=== PATIENT | male | born 1965 | race Two or more races ===

== ENCOUNTER 2016-10-11 09:20 | Inpatient (IN) | payer OTHER ==
[2016-10-11 11:36] VITALS: BMI 31.9
--- NOTE | 2016-10-11 14:08 | HP ---
COWS - Scale Resting Pulse: 1= RI 81-100 Sweatin= Beads of Sweat on Face Restless Observation: 1= Difficult to Sit Still Pupil Size: 2= Moderately Dilated Bone or Joint Aches: 2= Severe Diffuse Aches Runny Nose/ Eye Tearin= Runny Nose/Eyes GI Upset > 30mins: 2= Nausea/Diarrhea Tremor Observation: 2= Slight Tremor Visible Yawning Observation: 1= 1-2x During Session Anxiety or Irritability: 2=Irritable/Anxious Goose Flesh Skin: 0=Smooth Skin COWS Score: 18 CIWA Score - CIWA Score Nausea/Vomitin (& diarrhea) Muscle Tremors: 4-Moderate,w/Arms Extend Anxiety: 4-Mod. Anxious/Guarded Agitation: 4-Moderately Restless Paroxysmal Sweats: 4-Forehead w/Sweat Beads Orientation: 0-Oriented Tacttile Disturbances: 0-None Auditory Disturbances: 0-None Visual Disturbances: 0-None Headache: 4-Moderately Severe CIWA-Ar Total Score: 22 Admission ROS S - HPI Chief Complaint: Withdrawal sx. Allergies/Adverse Reactions: Allergies Allergy/AdvReac Type Severity Reaction Status Date / Time No Known Allergies Allergy Verified 10/11/16 12:40 History of Present Illness: 51 y/o man with a long hx. of heroin & alcohol dependence is admitted for detox.Pt. has been in previous detox,denies significant sobriety. Exam Limitations: No Limitations - Ebola screening Have you traveled outside of the country in the last 21 days: No Have you had contact with anyone from an Ebola affected area: No Have you been sick,other than usual withdrawal symptoms: No Do you have a fever: No - Review of Systems Constitutional: Diaphoresis EENT: reports: Nose Congestion Respiratory: reports: No Symptoms reported Cardiac: reports: No Symptoms Reported GI: reports: Diarrhea, Nausea, Abdominal cramping : reports: No Symptoms Reported Musculoskeletal: reports: Back Pain, Joint Pain, Muscle Pain Integumentary: reports: Sweating Neuro: reports: Headache, Tremors Endocrine: reports: No Symptoms Reported Hematology: reports: No Symptoms Reported Psychiatric: reports: No Sypmtoms Reported Other Systems: Reviewed and Negative Patient History - Patient Medical History Hx Anemia: No Hx Asthma: Yes (as a child) Hx Chronic Obstructive Pulmonary Disease (COPD): No Hx Cancer: No Hx Cardiac Disorders: No Hx Congestive Heart Failure: No Hx Hypertension: No Hx Hypercholesterolemia: No Hx Pacemaker: No HX Cerebrovascular Accident: No Hx Seizures: No Hx Dementia: No Hx Diabetes: No Hx Gastrointestinal Disorders: No Hx Liver Disease: No Hx Genitourinary Disorders: No Hx Sexually Transmitted Disorders: No Hx Renal Disease (ESRD): No Hx Thyroid Disease: No Hx Human Immunodeficiency Virus (HIV): No Hx Hepatitis C: No Hx Depression: No Hx Suicide Attempt: No Hx Bipolar Disorder: No Hx Schizophrenia: No - Patient Surgical History Past Surgical History: Yes Hx Neurologic Surgery: No Hx Cataract Extraction: No Hx Cardiac Surgery: No Hx Lung Surgery: No Hx Breast Surgery: No Hx Breast Biopsy: No Hx Abdominal Surgery: No Hx Appendectomy: Yes (appendectomy in 2007) Hx Cholecystectomy: No Hx Genitourinary Surgery: No Hx Section: No Hx Orthopedic Surgery: Yes (fx, right ankle in 2009) Anesthesia Reaction: Yes - PPD History Previous Implant?: Yes Documented Results: Negative w/o proof Implanted On Prior [facility] Admission?: No PPD to be Administered?: Yes - Smoking Cessation Smoking history: Current some day smoker Have you smoked in the past 12 months: Yes Aproximately how many cigarettes per day: 5 Hx Chewing Tobacco Use: No Initiated information on smoking cessation: Yes 'Breaking Loose' booklet given: 10/11/16 - Substance & Tx. History Hx Alcohol Use: Yes Hx Substance Use: Yes Substance Use Type: Alcohol, Heroin, Marijuana, Tranquilizers Hx Substance Use Treatment: Yes (detox) - Substances Abused Heroin Route: Inhalation Frequency: Daily Amount used: 10-12 bags Age of first use: 23 Date of Last Use: 10/11/16 Alcohol-vodka Route: Oral Frequency: Daily Amount used: 3-4 pts. Age of first use: 9 Date of Last Use: 10/11/16 Xanax Route: Oral Frequency: 3-6 times per week Amount used: 6 mg. Age of first use: 23 Date of Last Use: 10/08/16 Family Disease History - Family Disease History Family Disease History: Heart Disease: Mother (HTN,alcohol) Admission Physical Exam BHS - Vital Signs Vital Signs: Vital Signs - 24 hr 10/11/16 11:27 Temperature 98 F Pulse Rate 92 H Respiratory 20 Rate Blood Pressure 147/90 - Physical General Appearance: Yes: Alcohol on Breath, Tremorous, Irritable, Sweating, Anxious HEENTM: Yes: Nasal Congestion, Rhinorrhea Respiratory: Yes: Chest Non-Tender, Lungs Clear, Normal Breath Sounds Neck: Yes: Supple Breast: Yes: Breast Exam Deferred Cardiology: Yes: Regular Rhythm, Regular Rate, S1, S2 Abdominal: Yes: Normal Bowel Sounds, Non Tender, Soft Genitourinary: Yes: Within Normal Limits Back: Yes: Within Normal Limits Musculoskeletal: Yes: Within Normal Limits Extremities: Yes: Tremors Neurological: Yes: Fully Oriented, Alert Integumentary: Yes: Diaphoresis Lymphatic: Yes: Within Normal Limits - Diagnostic (1) Alcohol dependence with uncomplicated withdrawal Current Visit: Yes Status: Acute (2) Opioid dependence with withdrawal Current Visit: Yes Status: Acute (3) Sedative, hypnotic or anxiolytic dependence with withdrawal, uncomplicated Current Visit: Yes Status: Acute Cleared for Admission [facility] - Detox or Rehab [facility] Level of Care: Medically Managed Detox Regimen/Protocol: Methadone/Librium [facility] Breath Alcohol Content Breath Alcohol Content: 0.167 Urine Drug Screen - Results Drug Screen Negative: No Urine Drug Screen Results: THC-Marijuana, OPI-Opiates, TCA-Tricyclic Antidepress
[2016-10-11] MEDS ORDERED: MENTHOL/PHENOL 1 EACH UD MM PRN (14:15)
[2016-10-11] MEDS ORDERED: NICOTINE POLACRILEX 2 MG GUM BUC PRN (14:15)
[2016-10-11] MEDS ORDERED: hydrOXYzine PAMOATE 50 MG CAPSULE (FP) PO PRN (14:15)
[2016-10-11] MEDS ORDERED: LOPERAMIDE HCL 2 MG CAPSULE PO PRN (14:15)
[2016-10-11] MEDS ORDERED: MAGNESIUM HYDROX 2400MG/30ML ORAL SUSPENSION 30 ML CUP PO PRN (14:15)
[2016-10-11] MEDS ORDERED: ACETAMINOPHEN 325 MG TABLET (FP) PO PRN (14:15)
[2016-10-11] MEDS ORDERED: chlordiazePOXIDE HCL 25 MG CAPSULE PO PRN (14:15)
[2016-10-11] MEDS ORDERED: P-EPHED 60MG/TRIPROLIDI 2.5MG TABLET PO PRN (14:15)
[2016-10-11] MEDS ORDERED: MAGNESIUM CITRATE 300 ML BOTTLE PO PRN (14:15)
[2016-10-11] MEDS ORDERED: guaiFENesin/D-METHORPHAN HB 10 ML UNIT-DOSE CUPS PO PRN (14:15)
[2016-10-11] MEDS ORDERED: IBUPROFEN 400 MG TABLET (FP) PO PRN (14:15)
[2016-10-11] MEDS ORDERED: ALBUTEROL SO4 6.7 GM HFA INHALER IH PRN (14:17)
[2016-10-11] MEDS ORDERED: chlordiazePOXIDE HCL 25 MG CAPSULE PO ONE (14:48)
[2016-10-11] MEDS ORDERED: METHADONE HCL 10 MG TABLET (FOR DETOX USE ONLY) PO ONE ×2 (14:48→23:00)
[2016-10-11] MEDS: NICOTINE 7 MG/24 HOURS TOPICAL PATCH TD SCH (15:22)
[2016-10-11] MEDS: chlordiazePOXIDE HCL 25 MG CAPSULE PO SCH ×2 (18:09→22:11)
[2016-10-11 20:16] LABS: URINE APPEARANCE CLOUDY; URINE BILIRUBIN NEGATIVE (NEGATIVE); URINE BLOOD NEGATIVE (NEGATIVE); URINE COLOR YELLOW; URINE GLUCOSE (UA) NEGATIVE (NEGATIVE); URINE KETONE NEGATIVE (NEGATIVE); URINE LEUK ESTERASE NEGATIVE (NEGATIVE); URINE NITRITE NEGATIVE (NEGATIVE); URINE PROTEIN NEGATIVE (NEGATIVE); URINE UROBILINOGEN NEGATIVE E.U./dl (0.2-1.0)
[2016-10-11] MEDS: THIAMINE HCL 100 MG TABLET (FP) PO SCH (22:10)
[2016-10-11] MEDS: diphenhydrAMINE HCL 50 MG CAPSULE PO PRN (22:11)
[2016-10-12] MEDS: chlordiazePOXIDE HCL 25 MG CAPSULE PO SCH ×4 (05:40→22:07)
[2016-10-12] MEDS ORDERED: METHADONE HCL 10 MG TABLET (FOR DETOX USE ONLY) PO SCH (10:00)
[2016-10-12] MEDS: PRENATAL VITAMINS W/ FOLIC ACID TABLET (FP) PO SCH (10:11)
[2016-10-12] MEDS: NICOTINE 7 MG/24 HOURS TOPICAL PATCH TD SCH (10:11)
[2016-10-12] MEDS: MAG HYDROX/AL HYDROX/SIMETH 30 ML UNIT-DOSE CUP PO PRN (10:12)
[2016-10-12 10:46] LABS: MCH 31.2 pg (25.7-33.7); MCHC 33.2 g/dl (32.0-35.9); MEAN CELL VOLUME 94.1 fl (80-96); MEAN PLT VOLUME 10.6 fl (7.5-11.1); PLATELET COUNT 143 K/MM3 (134-434); RDW 13.7 % (11.9-15.9); WHITE BLOOD COUNT 8.3 K/mm3 (4.0-10.0)
[2016-10-12 11:04] LABS: ALBUMIN 4.4 g/dl (3.4-5.0); BILIRUBIN,TOTAL 0.3 mg/dL (0.2-1.0); CALCIUM 8.8 mg/dL (8.5-10.1); COCKROFT - GAULT 91.59; CREATININE 1.3 mg/dL (0.7-1.3)
[2016-10-12 11:15] LABS: SICKLE CELL SCREEN NEGATIVE (NEGATIVE)
[2016-10-12 15:09] LABS: HIV 1 & 2 AB NEGATIVE; HIV 1 AGp24 NEGATIVE
--- NOTE | 2016-10-12 19:34 | PN ---
[facility] CIWA - CIWA Score Nausea/Vomitin Muscle Tremors: 2 Anxiety: 0-No Anxiety, at Ease Agitation: 1-Slight > Activity Paroxysmal Sweats: 3 Orientation: 0-Oriented Tacttile Disturbances: 2-Mild Itch/Numbness/Burn Auditory Disturbances: 3-Moderate Harsh/Frighten Visual Disturbances: 2-Mild Sensitivity Headache: 0-None Present CIWA-Ar Total Score: 16 BHS COWS - Scale Resting Pulse: 0= [place] 80 or Below Sweatin= Chills/Flushing Restless Observation: 1= Difficult to Sit Still Pupil Size: 0= Normal to Room Light Bone or Joint Aches: 2= Severe Diffuse Aches Runny Nose/ Eye Tearin= Runny Nose/Eyes GI Upset > 30mins: 2= Nausea/Diarrhea Tremor Observation of Outstretched Hands: 2= Slight Tremor Visible Yawning Observation: 1= 1-2x During Session Anxiety or Irritability: 2=Irritable/Anxious Goose Flesh Skin: 3=Piloerection COWS Score: 16 S Progress Note (SOAP) Subjective: Interrupted sleep, Stomach Cramping, Nausea, Diarrhea, Sweating. Objective: PT. A & O X 3, OBSERVED AMBULATING ON UNIT. 10/12/16 19:32 Vital Signs Temperature 97.7 F 10/12/16 18:32 Pulse Rate 64 10/12/16 18:32 Respiratory Rate 18 10/12/16 18:32 Blood Pressure 109/57 10/12/16 18:32 O2 Sat by Pulse Oximetry (%) Laboratory Tests 10/11/16 10/12/16 10/12/16 19:35 06:00 06:00 WBC 8.3 RBC 4.70 Hgb 14.7 Hct 44.2 MCV 94.1 MCHC 33.2 RDW 13.7 Plt Count 143 MPV 10.6 Sickle Cell Screen Negative Sodium 144 Potassium 4.1 Chloride 106 Carbon Dioxide 26 Anion Gap 12 BUN 16 Creatinine 1.3 Creat Clearance w eGFR 58.43 Random Glucose 133 H Calcium 8.8 Total Bilirubin 0.3 AST 34 ALT 38 Alkaline Phosphatase 57 Total Protein 8.0 Albumin 4.4 Urine Color Yellow Urine Appearance Cloudy Urine pH 5.0 Ur Specific [place] >= 1.030 H Urine Protein Negative Urine Glucose (UA) Negative Urine Ketones Negative Urine Blood Negative Urine Nitrite Negative Urine Bilirubin Negative Urine Urobilinogen Negative Ur Leukocyte Esterase Negative RPR Titer HIV 1&2 Antibody Screen HIV P24 Antigen 10/12/16 10/12/16 06:00 08:20 WBC RBC Hgb Hct MCV MCHC RDW Plt Count MPV Sickle Cell Screen Sodium Potassium Chloride Carbon Dioxide Anion Gap BUN Creatinine Creat Clearance w eGFR Random Glucose Calcium Total Bilirubin AST ALT Alkaline Phosphatase Total Protein Albumin Urine Color Urine Appearance Urine pH Ur Specific [place] Urine Protein Urine Glucose (UA) Urine Ketones Urine Blood Urine Nitrite Urine Bilirubin Urine Urobilinogen Ur Leukocyte Esterase RPR Titer Nonreactive HIV 1&2 Antibody Screen Negative HIV P24 Antigen Negative LABS NOTED. Assessment: 10/12/16 19:33 WITHDRAWAL SYMPTOMS. Plan: CONTINUE DETOX. BGM [facility]BK TOMORROW FOR ELEVATED ADMISSION RANDOM GLUCOSE LEVEL.
[2016-10-12] MEDS: THIAMINE HCL 100 MG TABLET (FP) PO SCH (22:07)
[2016-10-12] MEDS: diphenhydrAMINE HCL 50 MG CAPSULE PO PRN (22:07)
[2016-10-13] MEDS: chlordiazePOXIDE HCL 25 MG CAPSULE PO SCH ×2 (05:08→10:13)
[2016-10-13] MEDS: NICOTINE 7 MG/24 HOURS TOPICAL PATCH TD SCH (10:13)
[2016-10-13] MEDS: PRENATAL VITAMINS W/ FOLIC ACID TABLET (FP) PO SCH (10:13)
[2016-10-13] MEDS: METHADONE HCL 5 MG TABLET (FOR DETOX USE ONLY) PO SCH (10:13)
[2016-10-13] MEDS: MAG HYDROX/AL HYDROX/SIMETH 30 ML UNIT-DOSE CUP PO PRN (10:13)
[2016-10-13] MEDS: chlordiazePOXIDE 5 MG CAPSULE PO SCH ×2 (17:43→22:11)
--- NOTE | 2016-10-13 19:04 | PN ---
[facility] CIWA - CIWA Score Nausea/Vomitin-Mild Nausea/No Vomiting Muscle Tremors: 3 Anxiety: 4-Mod. Anxious/Guarded Agitation: 4-Moderately Restless Paroxysmal Sweats: 3 Orientation: 0-Oriented Tacttile Disturbances: 0-None Auditory Disturbances: 0-None Visual Disturbances: 0-None Headache: 0-None Present CIWA-Ar Total Score: 15 BHS COWS - Scale Resting Pulse: 0= [place] 80 or Below Sweatin=Flushed/Facial Moisture Restless Observation: 1= Difficult to Sit Still Pupil Size: 0= Normal to Room Light Bone or Joint Aches: 2= Severe Diffuse Aches Runny Nose/ Eye Tearin= Runny Nose/Eyes GI Upset > 30mins: 2= Nausea/Diarrhea Tremor Observation of Outstretched Hands: 2= Slight Tremor Visible Yawning Observation: 1= 1-2x During Session Anxiety or Irritability: 2=Irritable/Anxious Goose Flesh Skin: 0=Smooth Skin COWS Score: 14 S Progress Note (SOAP) Subjective: Anxiety,tremors,sweating,interrupted sleep,restless,nausea. Objective: 10/13/16 19:03 Vital Signs - 8 hr 10/13/16 10/13/16 10/13/16 11:14 13:47 17:54 Temperature 97.9 F 98.2 F 97.7 F Pulse Rate 80 75 62 Respiratory 16 20 18 Rate Blood Pressure 139/80 138/81 113/60 Laboratory Last Values WBC 8.3 K/mm3 (4.0-10.0) 10/12/16 06:00 RBC 4.70 M/mm3 (4.00-5.60) 10/12/16 06:00 Hgb 14.7 GM/dL (11.7-16.9) 10/12/16 06:00 Hct 44.2 % (35.4-49) 10/12/16 06:00 MCV 94.1 fl (80-96) 10/12/16 06:00 MCHC 33.2 g/dl (32.0-35.9) 10/12/16 06:00 RDW 13.7 % (11.9-15.9) 10/12/16 06:00 Plt Count 143 K/MM3 (134-434) 10/12/16 06:00 MPV 10.6 fl (7.5-11.1) 10/12/16 06:00 Sickle Cell Screen Negative (NEGATIVE) 10/12/16 06:00 Sodium 144 mmol/L (136-145) 10/12/16 06:00 Potassium 4.1 mmol/L (3.5-5.1) 10/12/16 06:00 Chloride 106 mmol/L (98-107) 10/12/16 06:00 Carbon Dioxide 26 mmol/L (21-32) 10/12/16 06:00 Anion Gap 12 (8-16) 10/12/16 06:00 BUN 16 mg/dL (7-18) 10/12/16 06:00 Creatinine 1.3 mg/dL (0.7-1.3) 10/12/16 06:00 Creat Clearance w eGFR 58.43 (>60) 10/12/16 06:00 POC Glucometer 126 UNITS (()) 10/13/16 05:10 Random Glucose 133 mg/dL (74-106) H 10/12/16 06:00 Calcium 8.8 mg/dL (8.5-10.1) 10/12/16 06:00 Total Bilirubin 0.3 mg/dL (0.2-1.0) 10/12/16 06:00 AST 34 U/L (15-37) 10/12/16 06:00 ALT 38 U/L (12-78) 10/12/16 06:00 Alkaline Phosphatase 57 U/L (45-117) 10/12/16 06:00 Total Protein 8.0 g/dl (6.4-8.2) 10/12/16 06:00 Albumin 4.4 g/dl (3.4-5.0) 10/12/16 06:00 Urine Color Yellow 10/11/16 19:35 Urine Appearance Cloudy 10/11/16 19:35 Urine pH 5.0 (5.0-8.0) 10/11/16 19:35 Ur Specific [place] >= 1.030 (1.005-1.025) H 10/11/16 19:35 Urine Protein Negative (NEGATIVE) 10/11/16 19:35 Urine Glucose (UA) Negative (NEGATIVE) 10/11/16 19:35 Urine Ketones Negative (NEGATIVE) 10/11/16 19:35 Urine Blood Negative (NEGATIVE) 10/11/16 19:35 Urine Nitrite Negative (NEGATIVE) 10/11/16 19:35 Urine Bilirubin Negative (NEGATIVE) 10/11/16 19:35 Urine Urobilinogen Negative E.U./dl (0.2-1.0) 10/11/16 19:35 Ur Leukocyte Esterase Negative (NEGATIVE) 10/11/16 19:35 RPR Titer Nonreactive (NONREACTIVE) 10/12/16 06:00 HIV 1&2 Antibody Screen Negative 10/12/16 08:20 HIV P24 Antigen Negative 10/12/16 08:20 labs noted Assessment: 10/13/16 19:03 Withdrawal sx. Plan: Continue detox
[2016-10-13] MEDS: THIAMINE HCL 100 MG TABLET (FP) PO SCH (22:11)
[2016-10-13] MEDS: diphenhydrAMINE HCL 50 MG CAPSULE PO PRN (22:11)
--- NOTE | 2016-10-13 23:21 | EKG ---
Test Reason : Blood Pressure : / mmHG Vent. Rate : 059 BPM Atrial Rate : 059 BPM P-R Int : 140 ms QRS Dur : 094 ms QT Int : 408 ms P-R-T Axes : 053 003 002 degrees QTc Int : 403 ms SINUS BRADYCARDIA OTHERWISE NORMAL ECG NO PREVIOUS ECGS AVAILABLE Confirmed by ZAID GRADY MD ([id number]) on 10/13/2016 11:21:11 PM Referred By: Confirmed By:ZAID GRADY MD
[2016-10-14] MEDS: chlordiazePOXIDE 5 MG CAPSULE PO SCH ×2 (05:39→10:16)
[2016-10-14] MEDS: PRENATAL VITAMINS W/ FOLIC ACID TABLET (FP) PO SCH (10:16)
[2016-10-14] MEDS: METHADONE HCL 5 MG TABLET (FOR DETOX USE ONLY) PO SCH (10:16)
[2016-10-14] MEDS: NICOTINE 7 MG/24 HOURS TOPICAL PATCH TD SCH (10:17)
[2016-10-14] MEDS: MAG HYDROX/AL HYDROX/SIMETH 30 ML UNIT-DOSE CUP PO PRN (10:17)
--- NOTE | 2016-10-14 16:15 | PN ---
BHS Progress Note (SOAP) Subjective: Sweating, Stomach Cramping, Interrupted Sleep. Objective: PT. A & O X 3, OBSERVED AMBULATING ON UNIT. NO ACUTE DISTRESS. 10/14/16 16:12 Vital Signs Temperature 98.2 F 10/14/16 15:42 Pulse Rate 80 10/14/16 15:42 Respiratory Rate 18 10/14/16 15:42 Blood Pressure 112/69 10/14/16 15:42 O2 Sat by Pulse Oximetry (%) Laboratory Tests 10/11/16 10/12/16 10/12/16 19:35 06:00 06:00 WBC 8.3 RBC 4.70 Hgb 14.7 Hct 44.2 MCV 94.1 MCHC 33.2 RDW 13.7 Plt Count 143 MPV 10.6 Sickle Cell Screen Negative Sodium 144 Potassium 4.1 Chloride 106 Carbon Dioxide 26 Anion Gap 12 BUN 16 Creatinine 1.3 Creat Clearance w eGFR 58.43 POC Glucometer Random Glucose 133 H Calcium 8.8 Total Bilirubin 0.3 AST 34 ALT 38 Alkaline Phosphatase 57 Total Protein 8.0 Albumin 4.4 Urine Color Yellow Urine Appearance Cloudy Urine pH 5.0 Ur Specific [place] >= 1.030 H Urine Protein Negative Urine Glucose (UA) Negative Urine Ketones Negative Urine Blood Negative Urine Nitrite Negative Urine Bilirubin Negative Urine Urobilinogen Negative Ur Leukocyte Esterase Negative RPR Titer HIV 1&2 Antibody Screen HIV P24 Antigen 10/12/16 10/12/16 10/13/16 06:00 08:20 05:10 WBC RBC Hgb Hct MCV MCHC RDW Plt Count MPV Sickle Cell Screen Sodium Potassium Chloride Carbon Dioxide Anion Gap BUN Creatinine Creat Clearance w eGFR POC Glucometer 126 Random Glucose Calcium Total Bilirubin AST ALT Alkaline Phosphatase Total Protein Albumin Urine Color Urine Appearance Urine pH Ur Specific [place] Urine Protein Urine Glucose (UA) Urine Ketones Urine Blood Urine Nitrite Urine Bilirubin Urine Urobilinogen Ur Leukocyte Esterase RPR Titer Nonreactive HIV 1&2 Antibody Screen Negative HIV P24 Antigen Negative LABS NOTED. Assessment: 10/14/16 16:13 WITHDRAWAL SYMPTOMS. Plan: CONTINUE DETOX. ADVISED PATIENT TO FOLLOW-UP WITH TOPOGRAPHICAL FIELD ASSISTANT AFTER DISCHARGE FROM DETOX FOR GENERAL MEDICAL ASSESSMENT AND FOR ELEVATED ADMISSION RANDOM GLUCOSE AND FASTING BGM VALUES.
[2016-10-14] MEDS: chlordiazePOXIDE HCL 10 MG CAPSULE PO SCH ×2 (17:34→22:10)
[2016-10-14] MEDS: diphenhydrAMINE HCL 50 MG CAPSULE PO PRN (22:10)
[2016-10-14] MEDS: THIAMINE HCL 100 MG TABLET (FP) PO SCH (22:10)
[2016-10-15] MEDS: chlordiazePOXIDE HCL 10 MG CAPSULE PO SCH ×2 (05:42→10:33)
[2016-10-15] MEDS ORDERED: METHADONE HCL 10 MG TABLET (FOR DETOX USE ONLY) PO SCH (10:00)
--- NOTE | 2016-10-15 10:25 | PN ---
BHS Progress Note (SOAP) Subjective: sweats chills stomach cramps Objective: 10/15/16 10:24 Vital Signs Temperature 97.5 F L 10/15/16 09:46 Pulse Rate 75 10/15/16 09:46 Respiratory Rate 20 10/15/16 09:46 Blood Pressure 109/74 10/15/16 09:46 O2 Sat by Pulse Oximetry (%) awake/alert ambulating no acute distress Assessment: 10/15/16 10:24 mild withdrawal sx Plan: continue detox increase fluids mom/mylanta prn d/c in am
[2016-10-15] MEDS: PRENATAL VITAMINS W/ FOLIC ACID TABLET (FP) PO SCH (10:33)
[2016-10-15] MEDS: NICOTINE 7 MG/24 HOURS TOPICAL PATCH TD SCH (10:35)
[2016-10-15 21:51] VITALS: PULSE 59
[2016-10-15] MEDS: THIAMINE HCL 100 MG TABLET (FP) PO SCH (22:10)
[2016-10-15] MEDS: diphenhydrAMINE HCL 50 MG CAPSULE PO PRN (22:10)
[2016-10-16] MEDS ORDERED: METHADONE HCL 5 MG TABLET (FOR DETOX USE ONLY) PO SCH (06:00)
[2016-10-16 06:51] VITALS: BP 118/70; TEMP 97.3
--- NOTE | 2016-10-16 08:46 | DS ---
[facility] Detox Discharge Summary Admission Date: 10/11/16 Discharge Date: 10/16/16 - History Present History: Alcohol Dependence, Opioid Dependence, Sedative Dependence - Physical Exam Results Vital Signs: Vital Signs Temperature 97.3 F L 10/16/16 06:00 Pulse Rate 59 L 10/16/16 06:00 Respiratory Rate 18 10/16/16 06:00 Blood Pressure 118/70 10/16/16 06:00 O2 Sat by Pulse Oximetry (%) - Treatment Hospital Course: Detox Protocol Followed, Detoxed Safely, Responded well, Discharged Condition Good - Medication Discharge Medications: Ambulatory Orders Albuterol Sulfate Inhaler - [Ventolin Hfa Inhaler -] 2 inh PO Q4H PRN 10/11/16 - Diagnosis (1) Asthma Current Visit: Yes Status: Chronic Qualifiers: Asthma severity: mild intermittent (2) Alcohol dependence with uncomplicated withdrawal Current Visit: Yes Status: Chronic (3) Opioid dependence with withdrawal Current Visit: Yes Status: Chronic (4) Sedative, hypnotic or anxiolytic dependence with withdrawal, uncomplicated Current Visit: Yes Status: Chronic - AMA Did Patient Leave Against Medical Advice: No
[2016-10-16] MEDS: PRENATAL VITAMINS W/ FOLIC ACID TABLET (FP) PO SCH (09:26)
== END 2016-10-16 09:40 | disposition home or self-care (01) | DRG 773 ==
LOC: YASAS 09:20 → Y6N 13:10
PROVIDERS: ADMIT Internal Medicine; ATTEND Internal Medicine
PROC: HZ2ZZZZ Detoxification Services for Substance Abuse Treatment (ICD-10-PCS; principal; 2016-10-16)
DX: F11.23 Opioid dependence with withdrawal (principal); F13.230 Sedative, hypnotic or anxiolytic dependence with withdrawal, uncomplicated; F10.230 Alcohol dependence with withdrawal, uncomplicated; J45.20 Mild intermittent asthma, uncomplicated
CPT/HCPCS: 36415; 80053; 81003; 85027; 85660; 86593; 87389; 93005; 93010

== ENCOUNTER 2017-10-09 14:24 | Inpatient (IN) | payer OTHER ==
[2017-10-09 16:49] VITALS: BMI 34.3
--- NOTE | 2017-10-09 19:03 | HP ---
CIWA Score - CIWA Score Nausea/Vomitin Muscle Tremors: 2 Anxiety: 2 Agitation: 2 Paroxysmal Sweats: 2 Orientation: 1-Uncertain about Date Tacttile Disturbances: 0-None Auditory Disturbances: 0-None Visual Disturbances: 0-None Headache: 2-Mild CIWA-Ar Total Score: 14 Admission [facility] - HPI Chief Complaint: alcohol withdrawal symptoms Allergies/Adverse Reactions: Allergies Allergy/AdvReac Type Severity Reaction Status Date / Time No Known Allergies Allergy Verified 10/11/16 12:40 History of Present Illness: 52 yo male with hx of chronic alcoholism. PMHX: HTN, DMII(oral meds), GERD, depression, anxiety, insomnia. Last detox [facility] September 2016. Reports was admitted to psych bynum at [facility] for suicide attempt, by self lacerating. Denies suciadal / homicidal ideation at this time. Longest period of sobriety 5 years. Exam Limitations: No Limitations - Ebola screening Have you traveled outside of the country in the last 21 days: No Have you had contact with anyone from an Ebola affected area: No Have you been sick,other than usual withdrawal symptoms: No Do you have a fever: No - Review of Systems Constitutional: Chills, Loss of Appetite, Changes in sleep, Unintentional Wgt. Loss (15 lbs) EENT: reports: Tinnitus, Other (wears a glasses) Respiratory: reports: No Symptoms reported Cardiac: reports: Lightheadedness GI: reports: Diarrhea, Nausea (no appetite x 4 days), Poor Appetite, Poor Fluid Intake, Vomiting, Indigestion, Abdominal cramping : reports: No Symptoms Reported Musculoskeletal: reports: No Symptoms Reported Integumentary: reports: No Symptoms Reported Neuro: reports: Headache Endocrine: reports: Excessive Sweating, Increased Thirst Hematology: reports: No Symptoms Reported Psychiatric: reports: Orientated x3, Depressed Other Systems: Reviewed and Negative Patient History - Patient Medical History Hx Anemia: No Hx Asthma: Yes (as a child) Hx Chronic Obstructive Pulmonary Disease (COPD): No Hx Cancer: No Hx Cardiac Disorders: No Hx Congestive Heart Failure: No Hx Hypertension: No Hx Hypercholesterolemia: No Hx Pacemaker: No HX Cerebrovascular Accident: No Hx Seizures: No Hx Dementia: No Hx Diabetes: No Hx Gastrointestinal Disorders: Yes (GERD) Hx Liver Disease: No Hx Genitourinary Disorders: No Hx Sexually Transmitted Disorders: No Hx Renal Disease (ESRD): No Hx Thyroid Disease: No Hx Human Immunodeficiency Virus (HIV): No Hx Hepatitis C: No Hx Depression: Yes Hx Suicide Attempt: No Hx Bipolar Disorder: No Hx Schizophrenia: No - Patient Surgical History Past Surgical History: Yes Hx Neurologic Surgery: No Hx Cataract Extraction: No Hx Cardiac Surgery: No Hx Lung Surgery: No Hx Breast Surgery: No Hx Breast Biopsy: No Hx Abdominal Surgery: No Hx Appendectomy: Yes (appendectomy in 2007) Hx Cholecystectomy: No Hx Genitourinary Surgery: No Hx Section: No Hx Orthopedic Surgery: Yes (fx, right ankle in 2009) Anesthesia Reaction: Yes - PPD History Previous Implant?: Yes Documented Results: Negative w/proof Date: 10/13/16 PPD to be Administered?: Yes - Smoking Cessation Smoking history: Current some day smoker Have you smoked in the past 12 months: Yes Aproximately how many cigarettes per day: 5 Hx Chewing Tobacco Use: No Initiated information on smoking cessation: Yes 'Breaking Loose' booklet given: 10/09/17 - Substance & Tx. History Hx Alcohol Use: Yes Hx Substance Use: Yes Hx Substance Use Treatment: Yes (alcohol [facility] September 2016) - Substances Abused Alcohol Route: Oral Frequency: Daily Amount used: liquor- 3 pints Age of first use: 23 Date of Last Use: 10/09/17 Family Disease History - Family Disease History Family Disease History: Heart Disease: Mother (HTN,alcohol) Admission Physical Exam BHS - Vital Signs Vital Signs: Vital Signs - 24 hr 10/09/17 16:46 Temperature 97.7 F Pulse Rate 118 H Respiratory 18 Rate Blood Pressure 153/99 - Physical General Appearance: Yes: Appropriately Dressed, Mild Distress, Anxious HEENTM: Yes: EOMI, Hearing grossly Normal, Normal ENT Inspection, Normocephalic , Normal Voice, ODILON, Pharynx Normal, Tm's normal Respiratory: Yes: Chest Non-Tender, Lungs Clear, Normal Breath Sounds, No Respiratory Distress, No Accessory Muscle Use Neck: Yes: No masses,lesions,Nodules, Trachea in good position Breast: Yes: Breast Exam Deferred Cardiology: Yes: Regular Rhythm, Regular Rate Abdominal: Yes: Normal Bowel Sounds, Non Tender, Soft, Protuberent Genitourinary: Yes: Within Normal Limits Back: Yes: Normal Inspection Musculoskeletal: Yes: full range of Motion, Gait Steady, Pelvis Stable Extremities: Yes: Normal Capillary Refill, Normal Inspection, Normal Range of Motion, Non-Tender Neurological: Yes: slot router II-XII NML intact, Fully Oriented, Motor Strength 5/5, Depressed Affect Integumentary: Yes: Normal Color, Warm, Diaphoresis Lymphatic: Yes: Within Normal Limits - Diagnostic (1) Hypertension Current Visit: Yes Status: Chronic Qualifiers: Hypertension type: essential hypertension Qualified Code(s): I10 - Essential (primary) hypertension (2) Diabetes mellitus type 2 in obese Current Visit: Yes Status: Acute (3) Depression (emotion) Current Visit: Yes Status: Acute Qualifiers: Depression Type: dysthymia Qualified Code(s): F34.1 - Dysthymic disorder (4) Alcohol dependence with uncomplicated withdrawal Current Visit: Yes Status: Acute (5) Asthma Current Visit: Yes Status: Chronic Qualifiers: Asthma severity: mild Asthma persistence: unspecified Asthma complication type: unspecified Qualified Code(s): J45.998 - Other asthma Cleared for Admission S - Detox or Rehab [facility] Level of Care: Medically Managed Detox Regimen/Protocol: Librium [facility] Breath Alcohol Content Breath Alcohol Content: 0.315 Urine Drug Screen - Results Drug Screen Negative: No Urine Drug Screen Results: TCA-Tricyclic Antidepress
[2017-10-09] MEDS ORDERED: ALBUTEROL SO4 18 GM HFA INHALER IH PRN (19:10)
[2017-10-09] MEDS ORDERED: hydrOXYzine PAMOATE 50 MG CAPSULE (FP) PO PRN (19:11)
[2017-10-09] MEDS ORDERED: P-EPHED 60MG/TRIPROLIDI 2.5MG TABLET PO PRN (19:11)
[2017-10-09] MEDS ORDERED: LOPERAMIDE HCL 2 MG CAPSULE PO PRN (19:11)
[2017-10-09] MEDS ORDERED: MENTHOL/PHENOL 1 EACH UD MM PRN (19:11)
[2017-10-09] MEDS ORDERED: MAGNESIUM CITRATE 300 ML BOTTLE PO PRN (19:11)
[2017-10-09] MEDS ORDERED: MAG HYDROX/AL HYDROX/SIMETH 30 ML UNIT-DOSE CUP PO PRN (19:11)
[2017-10-09] MEDS ORDERED: MAGNESIUM HYDROX 2400MG/30ML ORAL SUSPENSION 30 ML CUP PO PRN (19:11)
[2017-10-09] MEDS ORDERED: IBUPROFEN 400 MG TABLET (FP) PO PRN (19:11)
[2017-10-09] MEDS ORDERED: ACETAMINOPHEN 325 MG TABLET (FP) PO PRN (19:18)
[2017-10-09] MEDS ORDERED: guaiFENesin/D-METHORPHAN HB 10 ML UNIT-DOSE CUPS PO PRN (19:18)
[2017-10-09] MEDS ORDERED: chlordiazePOXIDE HCL 25 MG CAPSULE PO ONE (19:30)
[2017-10-09] MEDS ORDERED: MELATONIN 5 MG TABLETS PO PRN (22:00)
[2017-10-09] MEDS: THIAMINE HCL 100 MG TABLET (FP) PO SCH (22:22)
[2017-10-09] MEDS: chlordiazePOXIDE HCL 25 MG CAPSULE PO SCH (22:22)
[2017-10-09] MEDS ORDERED: cloNIDine HCL 0.1 MG TABLET PO ONE (23:39)
--- NOTE | 2017-10-09 23:41 | PN ---
S Progress Note Note: Vital Signs Temperature 98.2 F 10/09/17 22:54 Pulse Rate 114 H 10/09/17 22:54 Respiratory Rate 19 10/09/17 22:54 Blood Pressure 170/97 10/09/17 22:54 O2 Sat by Pulse Oximetry (%) asymptomatic elevated BP one time dose clonidine 0.1 mg increase fluids labs pending continue to monitor
[2017-10-10 01:31] LABS: URINE APPEARANCE CLEAR; URINE BILIRUBIN NEGATIVE (<2.0 mg/dL); URINE COLOR YELLOW; URINE GLUCOSE (UA) NEGATIVE (NEGATIVE); URINE KETONE NEGATIVE (NEGATIVE); URINE LEUK ESTERASE NEGATIVE (NEGATIVE); URINE NITRITE NEGATIVE (NEGATIVE); URINE PROTEIN NEGATIVE (NEGATIVE); URINE UROBILINOGEN NEGATIVE mg/dL (0.2-1.0)
[2017-10-10] MEDS: chlordiazePOXIDE HCL 25 MG CAPSULE PO SCH ×4 (06:00→22:30)
[2017-10-10] MEDS: chlordiazePOXIDE HCL 25 MG CAPSULE PO PRN (07:06)
[2017-10-10] MEDS: metFORMIN HCL 500 MG TABLET (FP) PO SCH (07:06)
[2017-10-10] MEDS ORDERED: cloNIDine HCL 0.1 MG TABLET PO ONE (07:06)
--- NOTE | 2017-10-10 07:14 | PN ---
S Progress Note Note: Patient's blood pressure is B/P 160/94. Patient is asymptomatic Vital Signs Temperature 98.2 F 10/10/17 06:00 Pulse Rate 98 H 10/10/17 06:30 Respiratory Rate 18 10/10/17 06:30 Blood Pressure 160/94 10/10/17 06:00 O2 Sat by Pulse Oximetry (%) Action: Clonidine 0.1mg tablet ordered
[2017-10-10 10:10] LABS: HEMATOCRIT 40.1 % (35.4-49); HEMOGLOBIN 13.9 GM/dL (11.7-16.9); MCH 32.3 pg (25.7-33.7); MCHC 34.7 g/dl (32.0-35.9); MEAN CELL VOLUME 93.2 fl (80-96); PLATELET COUNT 80 K/MM3 (134-434); RDW 13.8 % (11.9-15.9); WHITE BLOOD COUNT 4.3 K/mm3 (4.0-10.0)
[2017-10-10] MEDS: PRENATAL VITAMINS W/ FOLIC ACID TABLET (FP) PO SCH (10:20)
[2017-10-10 10:23] LABS: CHLORIDE 101 mmol/L (98-107); POTASSIUM 3.6 mmol/L (3.5-5.1); SODIUM 137 mmol/L (136-145)
[2017-10-10 10:52] LABS: ALBUMIN 3.8 g/dl (3.4-5.0); ALK PHOS 59 U/L (45-117); ANION GAP 11 (8-16); BILIRUBIN,TOTAL 2.3 mg/dL (0.2-1.0); BLOOD UREA NITROGEN 11 mg/dL (7-18); CALCIUM 8.2 mg/dL (8.5-10.1); CO2 25 mmol/L (21-32); CREATININE 1.1 mg/dL (0.7-1.3); GLUCOSE,RANDOM 125 mg/dL (74-106); SGOT/AST 87 U/L (15-37); SGPT/ALT 59 U/L (12-78); TOT PROT 7.8 g/dl (6.4-8.2)
--- NOTE | 2017-10-10 11:28 | EKG ---
Test Reason : Blood Pressure : / mmHG Vent. Rate : 104 BPM Atrial Rate : 104 BPM P-R Int : 134 ms QRS Dur : 088 ms QT Int : 344 ms P-R-T Axes : 057 -03 033 degrees QTc Int : 452 ms SINUS TACHYCARDIA MINIMAL VOLTAGE CRITERIA FOR LVH, MAY BE NORMAL VARIANT WHEN COMPARED WITH ECG OF 11-OCT-2016 14:02, VENT. RATE HAS INCREASED BY 45 BPM NONSPECIFIC T WAVE ABNORMALITY HAS REPLACED INVERTED T WAVES IN INFERIOR LEADS QT HAS LENGTHENED Confirmed by PAULA CASANOVA MD ([id number]) on 10/10/2017 11:28:18 AM Referred By: Confirmed By:PAULA CASANOVA MD
--- NOTE | 2017-10-10 12:24 | PN ---
S CIWA - CIWA Score Nausea/Vomitin-Mild Nausea/No Vomiting Muscle Tremors: 4-Moderate,w/Arms Extend Anxiety: 3 Agitation: 3 Paroxysmal Sweats: 1-Minimal Palms Moist Orientation: 0-Oriented Tacttile Disturbances: 1-Very Mild Itch/Numbness Auditory Disturbances: 0-None Visual Disturbances: 0-None Headache: 0-None Present CIWA-Ar Total Score: 13 BHS Progress Note (SOAP) Subjective: sweat tremor anxiety restlessness trouble sleep at night Objective: 10/10/17 12:27 Vital Signs Temperature 98.2 F 10/10/17 09:42 Pulse Rate 90 10/10/17 09:42 Respiratory Rate 20 10/10/17 09:42 Blood Pressure 152/93 10/10/17 09:42 O2 Sat by Pulse Oximetry (%) Laboratory Last Values WBC 4.3 K/mm3 (4.0-10.0) D 10/10/17 07:50 RBC 4.30 M/mm3 (4.00-5.60) 10/10/17 07:50 Hgb 13.9 GM/dL (11.7-16.9) 10/10/17 07:50 Hct 40.1 % (35.4-49) 10/10/17 07:50 MCV 93.2 fl (80-96) 10/10/17 07:50 MCH 32.3 pg (25.7-33.7) 10/10/17 07:50 MCHC 34.7 g/dl (32.0-35.9) 10/10/17 07:50 RDW 13.8 % (11.9-15.9) 10/10/17 07:50 Plt Count 80 K/MM3 (134-434) L D 10/10/17 07:50 MPV 10.0 fl (7.5-11.1) 10/10/17 07:50 Sodium 137 mmol/L (136-145) 10/10/17 07:50 Potassium 3.6 mmol/L (3.5-5.1) 10/10/17 07:50 Chloride 101 mmol/L (98-107) 10/10/17 07:50 Carbon Dioxide 25 mmol/L (21-32) 10/10/17 07:50 Anion Gap 11 (8-16) 10/10/17 07:50 BUN 11 mg/dL (7-18) D 10/10/17 07:50 Creatinine 1.1 mg/dL (0.7-1.3) 10/10/17 07:50 Creat Clearance w eGFR > 60 (>60) 10/10/17 07:50 POC Glucometer 142 UNITS (80-120) 10/10/17 06:54 Random Glucose 125 mg/dL (74-106) H 10/10/17 07:50 Calcium 8.2 mg/dL (8.5-10.1) L 10/10/17 07:50 Total Bilirubin 2.3 mg/dL (0.2-1.0) H D 10/10/17 07:50 AST 87 U/L (15-37) H D 10/10/17 07:50 ALT 59 U/L (12-78) D 10/10/17 07:50 Alkaline Phosphatase 59 U/L (45-117) 10/10/17 07:50 Total Protein 7.8 g/dl (6.4-8.2) 10/10/17 07:50 Albumin 3.8 g/dl (3.4-5.0) 10/10/17 07:50 Urine Color Yellow 10/09/17 23:30 Urine Appearance Clear 10/09/17 23:30 Urine pH 6.0 (5.0-8.0) 10/09/17 23:30 Ur Specific [place] 1.006 (1.001-1.035) 10/09/17 23:30 Urine Protein Negative (NEGATIVE) 10/09/17 23:30 Urine Glucose (UA) Negative (NEGATIVE) 10/09/17 23:30 Urine Ketones Negative (NEGATIVE) 10/09/17 23:30 Urine Blood Negative (NEGATIVE) 10/09/17 23:30 Urine Nitrite Negative (NEGATIVE) 10/09/17 23:30 Urine Bilirubin Negative (<2.0 mg/dL) 10/09/17 23:30 Urine Urobilinogen Negative mg/dL (0.2-1.0) 10/09/17 23:30 Ur Leukocyte Esterase Negative (NEGATIVE) 10/09/17 23:30 RPR Titer Nonreactive (NONREACTIVE) 10/10/17 07:50 HIV 1&2 Antibody Screen Negative 10/10/17 07:50 HIV P24 Antigen Negative 10/10/17 07:50 lab noted Assessment: 10/10/17 12:28 withdrawal sx 10/10/17 12:28 hypertension Plan: continue detox begin amlodopine and lisinipril
--- NOTE | 2017-10-10 19:19 | CONSULT ---
[facility] Psychiatric Consult - Data Date of interview: 10/10/17 Admission source: [facility] Identifying data: Readmission to [facility] for this 52 y/o male seeking detox treatment on for alcohol dependence.Patient is single,a father of one,domiciled,unemployed and supported on Public Assistance. Substance Abuse History: Confirmed by patient in this session.Smoking history: Current some day smoker. Have you smoked in the past 12 months: Yes. Aproximately how many cigarettes per day: 5. Hx Chewing Tobacco Use: No. Initiated information on smoking cessation: Yes. 'Breaking Loose' booklet given : 10/09/17. - Substance & Tx. History. Hx Alcohol Use: Yes. Hx Substance Use : Yes. Hx Substance Use Treatment: Yes (alcohol [facility] September 2016). - Substances Abused. Alcohol. Route: Oral. Frequency: Daily. Amount used: liquor- 3 pints. Age of first use: 23. Date of Last Use: 10/09/17 Medical History: Diabetes mellitus,hypertension,GERD,bronchial asthma (childhood ),antecedent of appendectomy and a history of orthosurgery in 2009 (fracture of right ankle). Psychiatric History: History of two psychiatric hospitalizations ([facility] [place]).Diagnosed with Bipolar Disorder.Prescribed zoloft 50 mg/day + remeron 45 mg/hs + zyprexa 10 mg/hs.NOT taken for " a few weeks ".Mr Esteves is followed at the [facility] clinic in the [place].Patient admits to a history of suicide attempt (self-mutilation) in 2006. Physical/Sexual Abuse/Trauma History: Patient denies. Additional Comment: Urine Drug Screen Results: TCA-Tricyclic Antidepressant.Noted. Mental Status Exam - Mental Status Exam Alert and Oriented to: Time, Place, Person Cognitive Function: Good Patient Appearance: Well Groomed Mood: Sad, Nervous, Withdrawn Affect: Mood Congruent, Constricted Patient Behavior: Fatigued, Appropriate, Cooperative Speech Pattern: Clear, Appropriate Voice Loudness: Normal Thought Process: Intact, Goal Oriented Thought Disorder: Not Present Hallucinations: Denies Suicidal Ideation: Denies Homicidal Ideation: Denies Insight/Judgement: Poor Sleep: Difficulty falling asleep Appetite: Good Muscle strength/Tone: Normal Gait/Station: Normal Psychiatric Findings - Problem List ([place] 1, 2,3) (1) Alcohol dependence with uncomplicated withdrawal Current Visit: Yes Status: Acute (2) Substance induced mood disorder Current Visit: Yes Status: Acute (3) Depressive disorder Current Visit: Yes Status: Chronic Comment: As per self report.On medications. (4) Insomnia Current Visit: Yes Status: Acute - Initial Treatment Plan Initial Treatment Plan: Psychoeducation.Detoxification.Sleep hygiene.Medications : zyprexa 5 mg po hs + zoloft 50 mg po daily + remeron 15 mg po hs.Side effects/benfits of each medication are discussed with the patient.Mr Esteves agrees to this careplan.Observation.
[2017-10-10] MEDS ORDERED: OLANZapine 10 MG TABLET PO SCH (22:00)
[2017-10-10] MEDS: THIAMINE HCL 100 MG TABLET (FP) PO SCH (22:30)
[2017-10-10] MEDS: MIRTAZAPINE 15 MG TABLET (FP) PO SCH (22:30)
[2017-10-11] MEDS: chlordiazePOXIDE HCL 25 MG CAPSULE PO SCH ×3 (05:57→17:38)
[2017-10-11] MEDS: metFORMIN HCL 500 MG TABLET (FP) PO SCH (06:32)
--- NOTE | 2017-10-11 08:47 | EKG ---
Test Reason : Blood Pressure : / mmHG Vent. Rate : 102 BPM Atrial Rate : 102 BPM P-R Int : 124 ms QRS Dur : 090 ms QT Int : 346 ms P-R-T Axes : 057 -04 005 degrees QTc Int : 450 ms SINUS TACHYCARDIA OTHERWISE NORMAL ECG WHEN COMPARED WITH ECG OF 09-OCT-2017 20:57, NO SIGNIFICANT CHANGE WAS FOUND Confirmed by JACOB ZHOU MD ([id number]) on 10/11/2017 8:47:20 AM Referred By: Confirmed By:JACOB ZHOU MD
[2017-10-11] MEDS: amLODIPine BESYLATE 10 MG TABLET (FP) PO SCH (10:18)
[2017-10-11] MEDS: PRENATAL VITAMINS W/ FOLIC ACID TABLET (FP) PO SCH (10:18)
[2017-10-11] MEDS: SERTRALINE HCL 50 MG TABLET (FP) PO SCH (10:18)
[2017-10-11] MEDS: LISINOPRIL 10 MG TABLET (FP) PO SCH (10:18)
--- NOTE | 2017-10-11 12:55 | PN ---
S CIWA - CIWA Score Nausea/Vomitin Muscle Tremors: 3 Anxiety: 3 Agitation: 2 Paroxysmal Sweats: 1-Minimal Palms Moist Orientation: 0-Oriented Tacttile Disturbances: 1-Very Mild Itch/Numbness Auditory Disturbances: 1-Very Mild Visual Disturbances: 0-None Headache: 2-Mild CIWA-Ar Total Score: 16 BHS Progress Note (SOAP) Subjective: ALERT,IRRITABLE,ANXIOUS,INTERRUPTED SLEEP,TREMOR Objective: 10/11/17 12:53 Vital Signs Temperature 97.5 F L 10/11/17 09:27 Pulse Rate 86 10/11/17 09:27 Respiratory Rate 18 10/11/17 09:27 Blood Pressure 155/82 10/11/17 09:27 O2 Sat by Pulse Oximetry (%) Laboratory Last Values WBC 4.3 K/mm3 (4.0-10.0) D 10/10/17 07:50 RBC 4.30 M/mm3 (4.00-5.60) 10/10/17 07:50 Hgb 13.9 GM/dL (11.7-16.9) 10/10/17 07:50 Hct 40.1 % (35.4-49) 10/10/17 07:50 MCV 93.2 fl (80-96) 10/10/17 07:50 MCH 32.3 pg (25.7-33.7) 10/10/17 07:50 MCHC 34.7 g/dl (32.0-35.9) 10/10/17 07:50 RDW 13.8 % (11.9-15.9) 10/10/17 07:50 Plt Count 80 K/MM3 (134-434) L D 10/10/17 07:50 MPV 10.0 fl (7.5-11.1) 10/10/17 07:50 Sodium 137 mmol/L (136-145) 10/10/17 07:50 Potassium 3.6 mmol/L (3.5-5.1) 10/10/17 07:50 Chloride 101 mmol/L (98-107) 10/10/17 07:50 Carbon Dioxide 25 mmol/L (21-32) 10/10/17 07:50 Anion Gap 11 (8-16) 10/10/17 07:50 BUN 11 mg/dL (7-18) D 10/10/17 07:50 Creatinine 1.1 mg/dL (0.7-1.3) 10/10/17 07:50 Creat Clearance w eGFR > 60 (>60) 10/10/17 07:50 POC Glucometer 143 UNITS (80-120) 10/11/17 05:56 Random Glucose 125 mg/dL (74-106) H 10/10/17 07:50 Calcium 8.2 mg/dL (8.5-10.1) L 10/10/17 07:50 Total Bilirubin 2.3 mg/dL (0.2-1.0) H D 10/10/17 07:50 AST 87 U/L (15-37) H D 10/10/17 07:50 ALT 59 U/L (12-78) D 10/10/17 07:50 Alkaline Phosphatase 59 U/L (45-117) 10/10/17 07:50 Total Protein 7.8 g/dl (6.4-8.2) 10/10/17 07:50 Albumin 3.8 g/dl (3.4-5.0) 10/10/17 07:50 Urine Color Yellow 10/09/17 23:30 Urine Appearance Clear 10/09/17 23:30 Urine pH 6.0 (5.0-8.0) 10/09/17 23:30 Ur Specific [place] 1.006 (1.001-1.035) 10/09/17 23:30 Urine Protein Negative (NEGATIVE) 10/09/17 23:30 Urine Glucose (UA) Negative (NEGATIVE) 10/09/17 23:30 Urine Ketones Negative (NEGATIVE) 10/09/17 23:30 Urine Blood Negative (NEGATIVE) 10/09/17 23:30 Urine Nitrite Negative (NEGATIVE) 10/09/17 23:30 Urine Bilirubin Negative (<2.0 mg/dL) 10/09/17 23:30 Urine Urobilinogen Negative mg/dL (0.2-1.0) 10/09/17 23:30 Ur Leukocyte Esterase Negative (NEGATIVE) 10/09/17 23:30 RPR Titer Nonreactive (NONREACTIVE) 10/10/17 07:50 HIV 1&2 Antibody Screen Negative 10/10/17 07:50 HIV P24 Antigen Negative 10/10/17 07:50 Assessment: 10/11/17 12:54 WITHDRAWAL SYMPTOM Plan: CONTINUE DETOX,BGM MONITORING
[2017-10-11] MEDS: chlordiazePOXIDE HCL 25 MG CAPSULE PO PRN (15:25)
[2017-10-11] MEDS: THIAMINE HCL 100 MG TABLET (FP) PO SCH (22:11)
[2017-10-11] MEDS: MIRTAZAPINE 15 MG TABLET (FP) PO SCH (22:12)
[2017-10-11] MEDS: chlordiazePOXIDE 5 MG CAPSULE PO SCH (22:12)
[2017-10-11] MEDS: OLANZapine 10 MG TABLET PO SCH (22:12)
[2017-10-12] MEDS: chlordiazePOXIDE 5 MG CAPSULE PO SCH ×3 (05:42→17:24)
[2017-10-12] MEDS: metFORMIN HCL 500 MG TABLET (FP) PO SCH (06:55)
[2017-10-12] MEDS: LISINOPRIL 10 MG TABLET (FP) PO SCH (10:09)
[2017-10-12] MEDS: SERTRALINE HCL 50 MG TABLET (FP) PO SCH (10:09)
[2017-10-12] MEDS: amLODIPine BESYLATE 10 MG TABLET (FP) PO SCH (10:09)
[2017-10-12] MEDS: PRENATAL VITAMINS W/ FOLIC ACID TABLET (FP) PO SCH (10:09)
--- NOTE | 2017-10-12 15:25 | PN ---
S Progress Note (SOAP) Subjective: alert,irritable,anxious,interrupted sleep Objective: 10/12/17 15:23 Vital Signs Temperature 99.7 F H 10/12/17 14:12 Pulse Rate 95 H 10/12/17 14:12 Respiratory Rate 20 10/12/17 14:12 Blood Pressure 133/80 10/12/17 14:12 O2 Sat by Pulse Oximetry (%) Assessment: 10/12/17 15:24 withdrawal symptom Plan: continue detox,discharge in am
[2017-10-12] MEDS: MIRTAZAPINE 15 MG TABLET (FP) PO SCH (22:10)
[2017-10-12] MEDS: OLANZapine 10 MG TABLET PO SCH (22:10)
[2017-10-12] MEDS: THIAMINE HCL 100 MG TABLET (FP) PO SCH (22:10)
[2017-10-12] MEDS: chlordiazePOXIDE HCL 10 MG CAPSULE PO SCH (22:10)
[2017-10-13] MEDS: chlordiazePOXIDE HCL 10 MG CAPSULE PO SCH ×2 (06:11→10:21)
[2017-10-13] MEDS: metFORMIN HCL 500 MG TABLET (FP) PO SCH (06:13)
[2017-10-13 09:35] VITALS: BP 118/75; PULSE 80; TEMP 97.7
[2017-10-13] MEDS: SERTRALINE HCL 50 MG TABLET (FP) PO SCH (10:21)
[2017-10-13] MEDS: PRENATAL VITAMINS W/ FOLIC ACID TABLET (FP) PO SCH (10:21)
[2017-10-13] MEDS: amLODIPine BESYLATE 10 MG TABLET (FP) PO SCH (10:21)
[2017-10-13] MEDS: LISINOPRIL 10 MG TABLET (FP) PO SCH (10:22)
--- NOTE | 2017-10-13 10:58 | PN ---
S Progress Note (SOAP) Subjective: ALERT,NO COMPLAINT Objective: 10/13/17 10:57 Vital Signs Temperature 97.7 F 10/13/17 09:33 Pulse Rate 80 10/13/17 09:33 Respiratory Rate 18 10/13/17 09:33 Blood Pressure 118/75 10/13/17 09:33 O2 Sat by Pulse Oximetry (%) Assessment: 10/13/17 10:57 DETOX COMPLETED,NO WITHDRAWAL SYMPTOM Plan: ISCHARGE TODAY,FOLLOW UP WITH AFTER CARE PROGRAM ARRANGEMENT
--- NOTE | 2017-10-13 11:03 | DS ---
[facility] Detox Discharge Summary Admission Date: 10/09/17 Discharge Date: 10/13/17 - History Present History: Alcohol Dependence Additional Comments: FOLLOW UP WITH AFTER CARE PROGRAM ARRANGEMENT Pertinent Past History: HYPERTENSION ASTHMA TYPE 2 DM DEPRESSION - Physical Exam Results Vital Signs: Vital Signs Temperature 97.7 F 10/13/17 09:33 Pulse Rate 80 10/13/17 09:33 Respiratory Rate 18 10/13/17 09:33 Blood Pressure 118/75 10/13/17 09:33 O2 Sat by Pulse Oximetry (%) Pertinent Admission Physical Exam Findings: WITHDRAWAL SIGNS AND SYMPTOM Vital Signs Temperature 97.7 F 10/13/17 09:33 Pulse Rate 80 10/13/17 09:33 Respiratory Rate 18 10/13/17 09:33 Blood Pressure 118/75 10/13/17 09:33 O2 Sat by Pulse Oximetry (%) Laboratory Last Values WBC 4.3 K/mm3 (4.0-10.0) D 10/10/17 07:50 RBC 4.30 M/mm3 (4.00-5.60) 10/10/17 07:50 Hgb 13.9 GM/dL (11.7-16.9) 10/10/17 07:50 Hct 40.1 % (35.4-49) 10/10/17 07:50 MCV 93.2 fl (80-96) 10/10/17 07:50 MCH 32.3 pg (25.7-33.7) 10/10/17 07:50 MCHC 34.7 g/dl (32.0-35.9) 10/10/17 07:50 RDW 13.8 % (11.9-15.9) 10/10/17 07:50 Plt Count 80 K/MM3 (134-434) L D 10/10/17 07:50 MPV 10.0 fl (7.5-11.1) 10/10/17 07:50 Sodium 137 mmol/L (136-145) 10/10/17 07:50 Potassium 3.6 mmol/L (3.5-5.1) 10/10/17 07:50 Chloride 101 mmol/L (98-107) 10/10/17 07:50 Carbon Dioxide 25 mmol/L (21-32) 10/10/17 07:50 Anion Gap 11 (8-16) 10/10/17 07:50 BUN 11 mg/dL (7-18) D 10/10/17 07:50 Creatinine 1.1 mg/dL (0.7-1.3) 10/10/17 07:50 Creat Clearance w eGFR > 60 (>60) 10/10/17 07:50 POC Glucometer 159 UNITS (80-120) 10/13/17 06:04 Random Glucose 125 mg/dL (74-106) H 10/10/17 07:50 Calcium 8.2 mg/dL (8.5-10.1) L 10/10/17 07:50 Total Bilirubin 2.3 mg/dL (0.2-1.0) H D 10/10/17 07:50 AST 87 U/L (15-37) H D 10/10/17 07:50 ALT 59 U/L (12-78) D 10/10/17 07:50 Alkaline Phosphatase 59 U/L (45-117) 10/10/17 07:50 Total Protein 7.8 g/dl (6.4-8.2) 10/10/17 07:50 Albumin 3.8 g/dl (3.4-5.0) 10/10/17 07:50 Urine Color Yellow 10/09/17 23:30 Urine Appearance Clear 10/09/17 23:30 Urine pH 6.0 (5.0-8.0) 10/09/17 23:30 Ur Specific [place] 1.006 (1.001-1.035) 10/09/17 23:30 Urine Protein Negative (NEGATIVE) 10/09/17 23:30 Urine Glucose (UA) Negative (NEGATIVE) 10/09/17 23:30 Urine Ketones Negative (NEGATIVE) 10/09/17 23:30 Urine Blood Negative (NEGATIVE) 10/09/17 23:30 Urine Nitrite Negative (NEGATIVE) 10/09/17 23:30 Urine Bilirubin Negative (<2.0 mg/dL) 10/09/17 23:30 Urine Urobilinogen Negative mg/dL (0.2-1.0) 10/09/17 23:30 Ur Leukocyte Esterase Negative (NEGATIVE) 10/09/17 23:30 RPR Titer Nonreactive (NONREACTIVE) 10/10/17 07:50 HIV 1&2 Antibody Screen Negative 10/10/17 07:50 HIV P24 Antigen Negative 10/10/17 07:50 - Treatment Hospital Course: Detox Protocol Followed, Detoxed Safely, Responded well, Discharged Condition Good, Rehab Referral Accepted Patient has Accepted a Rehab Referral to: [facility] - Medication Discharge Medications: Ambulatory Orders Sertraline HCl [Zoloft -] 50 mg PO DAILY 10/09/17 Mirtazapine [Remeron -] 30 mg PO HS #30 tablet 10/11/17 Olanzapine 5 mg PO HS #30 tablet 10/11/17 Sertraline HCl [Zoloft -] 50 mg PO DAILY #30 tablet 10/11/17 Albuterol Sulfate Inhaler - [Ventolin HFA Inhaler -] 2 puff IH Q4H PRN #1 inhaler 10/12/17 Lisinopril [Prinivil] 10 mg PO DAILY #30 tablet 10/12/17 Metformin HCl [Glucophage] 500 mg PO DAILY #30 tablet 10/12/17 - Diagnosis (1) Alcohol dependence with uncomplicated withdrawal Current Visit: Yes Status: Acute (2) Diabetes mellitus type 2 in obese Current Visit: Yes Status: Acute (3) Insomnia Current Visit: Yes Status: Acute (4) Asthma Current Visit: Yes Status: Chronic Qualifiers: Asthma severity: mild Asthma persistence: unspecified Asthma complication type: unspecified Qualified Code(s): J45.998 - Other asthma (5) Hypertension Current Visit: Yes Status: Chronic Qualifiers: Hypertension type: essential hypertension Qualified Code(s): I10 - Essential (primary) hypertension (6) Depressive disorder Current Visit: Yes Status: Chronic - AMA Did Patient Leave Against Medical Advice: No
--- NOTE | 2017-10-13 11:05 | PN ---
S Progress Note Note: PATIENT CHANGED HIS MIND DID NOT WANT TO GO TO [facility],LEFT UNIT IN STABLE CONDITION.NO SUOCIDAL,NO HOMICIDAL
== END 2017-10-13 11:10 | disposition home or self-care (01) | DRG 775 ==
LOC: YASAS 14:24 → Y6N 17:34
PROVIDERS: ADMIT Surgery; ATTEND Surgery
PROC: HZ2ZZZZ Detoxification Services for Substance Abuse Treatment (ICD-10-PCS; principal; 2017-10-09)
DX: F10.230 Alcohol dependence with withdrawal, uncomplicated (principal); F32.9 Major depressive disorder, single episode, unspecified; F19.24 Other psychoactive substance dependence with psychoactive substance-induced mood disorder; E11.9 Type 2 diabetes mellitus without complications; Z79.84 Long term (current) use of oral hypoglycemic drugs; I10 Essential (primary) hypertension; G47.00 Insomnia, unspecified; Z87.09 Personal history of other diseases of the respiratory system; Z91.5 Personal history of self-harm
CPT/HCPCS: 36415; 80053; 81003; 82962; 85027; 86593; 87389; 93005; 93010; J0735